=== PATIENT | female | born 1945 | race Caucasian/White ===

== ENCOUNTER 2019-12-26 13:27 | Inpatient (IN) ==
[2019-12-26 16:44] LABS: ABS Eosinophils 0.1 10^3/ul (0-0.6); ABS Lymphocytes 0.9 10^3/ul (1.0-4.8); ABS Monocytes 0.7 10^3/ul (0-0.8); ABS Neutrophils 4.8 10^3/ul (1.5-7.7); Eosinophil % 1.5 %; Hematocrit 54 % (35-47); Hemoglobin 16.9 g/dL (12.0-16.0); Lymphocyte % 13.2 %; Mean Corpuscular HGB Conc 31 g/dL (31-36); Mean Corpuscular Hemoglobin 28 pg (27-31); Mean Corpuscular Volume 89 fL (80-97); Mean Platelet Volume 7.4 fL (7.4-10.4); Nucleated Red Blood Cells % 0.1; Platelet Count 185 10^3/uL (150-450); Red Blood Count 6.08 10^6 /uL (3.70-4.87); Red Cell Distribution Width 18 % (10-15); White Blood Count 6.5 10^3/uL (3.5-10.8)
[2019-12-26 16:46] LABS: Troponin I 0.01 ng/mL (<0.03)
[2019-12-26 17:02] LABS: Activated Partial Thrombo Time 31.3 seconds (26.0-38.0); INR 1.07 (0.82-1.09)
[2019-12-26 17:15] LABS: ALT 15 U/L (7-52); Albumin 3.8 g/dL (3.2-5.2); Alkaline Phosphatase 50 U/L (34-104); Anion Gap 5 mmol/L (2-11); BUN/Creatinine Ratio 16.1 (8-20); Blood Urea Nitrogen 10 mg/dL (6-24); CO2 Carbon Dioxide 31 mmol/L (22-32); Calcium 8.9 mg/dL (8.6-10.3); Chloride 95 mmol/L (101-111); EGFR African American 113.5 (>60); EGFR Non-African American 93.8 (>60); Globulin 3.8 g/dL (2-4); Glucose 90 mg/dL (70-100); Sodium 131 mmol/L (135-145); Total Protein 7.6 g/dL (6.4-8.9)
[2019-12-26] MEDS ORDERED: Iohexol 350 (CONTRAST) 500 ML MDV IV ONE (17:24)
[2019-12-26] MEDS ORDERED: Furosemide 40 mg/4 ml IV VIAL IV ONE (18:15)
[2019-12-26 18:21] LABS: Potassium Redraw 4.4 mmol/L (3.5-5.0)
[2019-12-26] MEDS ORDERED: TRAMADOL 50 MG PO SCH (20:00)
[2019-12-27] MEDS: Enoxaparin 40 MG/0.4 ML SYR SUBCUT SCH ×2 (00:12→21:28)
[2019-12-27] MEDS ORDERED: Iohexol 350 (CONTRAST) 500 ML MDV IV ONE (03:24)
[2019-12-27 06:06] LABS: ABS Eosinophils 0.1 10^3/ul (0-0.6); ABS Lymphocytes 0.7 10^3/ul (1.0-4.8); ABS Monocytes 0.8 10^3/ul (0-0.8); ABS Neutrophils 5.2 10^3/ul (1.5-7.7); Eosinophil % 1.3 %; Hematocrit 49 % (35-47); Hemoglobin 15.4 g/dL (12.0-16.0); Lymphocyte % 10.5 %; Mean Corpuscular HGB Conc 32 g/dL (31-36); Mean Corpuscular Hemoglobin 28 pg (27-31); Mean Corpuscular Volume 88 fL (80-97); Platelet Count 188 10^3/uL (150-450); Red Blood Count 5.57 10^6 /uL (3.70-4.87); Red Cell Distribution Width 18 % (10-15); White Blood Count 6.9 10^3/uL (3.5-10.8)
[2019-12-27 06:25] LABS: BUN/Creatinine Ratio 15.3 (8-20); Calcium 8.7 mg/dL (8.6-10.3); EGFR African American 120.2 (>60); EGFR Non-African American 99.4 (>60); HDL Cholesterol 47.7 mg/dL
[2019-12-27 06:26] LABS: Troponin I 0.01 ng/mL (<0.03)
[2019-12-27] MEDS ORDERED: Furosemide 40 mg/4 ml IV VIAL IV SLOW PU SCH (08:00)
[2019-12-27] MEDS: Cholecalciferol (VIT D3) 1,000 unit TAB PO SCH (08:25)
[2019-12-27] MEDS: Ciprofloxacin 0.3% OPTH.SOL BTL BOTH EYES SCH ×2 (08:26→21:28)
[2019-12-27] MEDS: Miconazole TOPICAL CREAM 2% 30 GM TOPICAL SCH (08:26)
[2019-12-27] MEDS ORDERED: Cholecalciferol (VIT D3) 1,000 unit TAB PO SCH (09:00)
[2019-12-27 14:45] LABS: INR 1.06 (0.82-1.09)
[2019-12-27 14:56] LABS: Calcium 8.9 mg/dL (8.6-10.3); Potassium 4.3 mmol/L (3.5-5.0); Total Bilirubin 0.6 mg/dL (0.2-1.0)
[2019-12-27] MEDS ORDERED: Furosemide 40 mg/4 ml IV VIAL IV STA (15:00)
[2019-12-27 15:02] LABS: Albumin/Globulin Ratio 1.1 (1-3); BUN/Creatinine Ratio 12.7 (8-20); EGFR African American 130.4 (>60); EGFR Non-African American 107.8 (>60); Globulin 2.8 g/dL (2-4); Total Protein 5.8 g/dL (6.4-8.9)
[2019-12-28 01:04] LABS: Magnesium 1.6 mg/dL (1.9-2.7)
[2019-12-28] MEDS ORDERED: Magnesium Sulfate 2 gm BAG 2 GM/50 ML BAG IVPB ONE (01:44)
[2019-12-28] MEDS ORDERED: Iohexol 350 (CONTRAST) 500 ML MDV IV ONE (05:13)
[2019-12-28] MEDS: Cholecalciferol (VIT D3) 1,000 unit TAB PO SCH (09:06)
[2019-12-28] MEDS: Furosemide 40 mg/4 ml IV VIAL IV SCH (09:07)
[2019-12-28] MEDS: Ciprofloxacin 0.3% OPTH.SOL BTL BOTH EYES SCH ×2 (09:11→20:59)
[2019-12-28] MEDS ORDERED: Perflutren Lipid Microsphere 3 ML VIAL ONE (09:25)
[2019-12-28] MEDS ORDERED: Metoprolol Tartrate 5 mg VIAL 5 ml VIAL (1 mg/ml) IV PRN (09:42)
[2019-12-28] MEDS ORDERED: Diltiazem IV push/loading dose 5 MG/ML 5 ML vial (25 mg) IV SLOW PU ONE (09:54)
[2019-12-28] MEDS: Miconazole TOPICAL CREAM 2% 30 GM TOPICAL SCH (10:06)
[2019-12-28 12:09] LABS: Calcium 8.4 mg/dL (8.6-10.3); Magnesium 1.7 mg/dL (1.9-2.7); Potassium 3.8 mmol/L (3.5-5.0)
[2019-12-28 12:15] LABS: BUN/Creatinine Ratio 11.1 (8-20); EGFR African American 133.2 (>60); EGFR Non-African American 110.1 (>60)
[2019-12-28] MEDS: Metoprolol Tartrate 5 mg VIAL 5 ml VIAL (1 mg/ml) IV PRN (12:28)
[2019-12-28] MEDS ORDERED: Magnesium Sulfate IV 3 GM in NS 0.9% 100 ml BAG 100 ML IVPB ONE (13:31)
[2019-12-28] MEDS ORDERED: Vancomycin 1,000 MG in NS 0.9% 250 ml 250 ML IV ONE (13:33)
[2019-12-28] MEDS ORDERED: Piperacillin/Tazobac ADVAN 3.375 GM in NS 0.9% 100 ml BAG 100 ML IV ONE (13:39)
[2019-12-28] MEDS ORDERED: Vancomycin per Pharmacy 1 EA NOTE FOLLOW UP SCH (14:00)
[2019-12-28] MEDS ORDERED: Zosyn per Pharmacy NOTE FOLLOW UP PRN (14:05)
[2019-12-28 14:26] LABS: ABS Eosinophils 0.1 10^3/ul (0-0.6); ABS Lymphocytes 0.7 10^3/ul (1.0-4.8); ABS Monocytes 0.9 10^3/ul (0-0.8); ABS Neutrophils 4.6 10^3/ul (1.5-7.7); Eosinophil % 0.9 %; Hematocrit 48 % (35-47); Hemoglobin 14.7 g/dL (12.0-16.0); Lymphocyte % 10.7 %; Mean Corpuscular HGB Conc 31 g/dL (31-36); Mean Corpuscular Hemoglobin 27 pg (27-31); Mean Corpuscular Volume 88 fL (80-97); Mean Platelet Volume 6.9 fL (7.4-10.4); Nucleated Red Blood Cells % 0.2; Platelet Count 177 10^3/uL (150-450); Red Blood Count 5.41 10^6 /uL (3.70-4.87); Red Cell Distribution Width 18 % (10-15); White Blood Count 6.2 10^3/uL (3.5-10.8)
[2019-12-28] MEDS ORDERED: Vancomycin 2000 MG X 1 dose, then per Pharmacy PROTOCOL IVPB ONE (14:30)
[2019-12-28] MEDS ORDERED: Furosemide 40 mg/4 ml IV VIAL IV SLOW PU ONE (16:00)
[2019-12-28 17:30] LABS: Body Fluid Source Pleural Fluid
[2019-12-28] MEDS: ZOSYN 3.375 GM Q8H per EXTENDED INFUSION IV SCH (17:49)
[2019-12-28 18:10] LABS: Body Fluid Mono 4 %; Body Fluid Other Cells 5
[2019-12-28] MEDS: Enoxaparin 40 MG/0.4 ML SYR SUBCUT SCH (20:59)
[2019-12-28] MEDS: Vancomycin 1,250 MG in NS 0.9% 250 ml 250 ML IV SCH (22:38)
[2019-12-29] MEDS: ZOSYN 3.375 GM Q8H per EXTENDED INFUSION IV SCH ×3 (03:36→17:56)
[2019-12-29] MEDS: Vancomycin 1,250 MG in NS 0.9% 250 ml 250 ML IV SCH (05:09)
[2019-12-29 07:06] LABS: CO2 Carbon Dioxide 35 mmol/L (22-32); Chloride 95 mmol/L (101-111); Sodium 137 mmol/L (135-145)
[2019-12-29 07:07] LABS: ABS Eosinophils 0.1 10^3/ul (0-0.6); ABS Lymphocytes 1.2 10^3/ul (1.0-4.8); ABS Monocytes 0.9 10^3/ul (0-0.8); ABS Neutrophils 5.9 10^3/ul (1.5-7.7); Eosinophil % 1.2 %; Hematocrit 48 % (35-47); Hemoglobin 14.8 g/dL (12.0-16.0); Lymphocyte % 14.3 %; Mean Corpuscular HGB Conc 31 g/dL (31-36); Mean Corpuscular Hemoglobin 28 pg (27-31); Mean Corpuscular Volume 89 fL (80-97); Red Blood Count 5.36 10^6 /uL (3.70-4.87); Red Cell Distribution Width 18 % (10-15); White Blood Count 8.1 10^3/uL (3.5-10.8)
[2019-12-29 07:11] LABS: Anion Gap 7 mmol/L (2-11); Blood Urea Nitrogen 9 mg/dL (6-24); EGFR African American 117.9 (>60); EGFR Non-African American 97.5 (>60); Glucose 85 mg/dL (70-100)
[2019-12-29] MEDS: Cholecalciferol (VIT D3) 1,000 unit TAB PO SCH (08:21)
[2019-12-29] MEDS: Miconazole TOPICAL CREAM 2% 30 GM TOPICAL SCH (08:21)
[2019-12-29] MEDS: Furosemide 40 mg/4 ml IV VIAL IV SCH (08:21)
[2019-12-29] MEDS: Ciprofloxacin 0.3% OPTH.SOL BTL BOTH EYES SCH ×2 (08:22→20:27)
[2019-12-29 09:00] LABS: Mean Platelet Volume 7.4 fL (7.4-10.4); Platelet Count 123 10^3/uL (150-450)
[2019-12-29 10:18] LABS: Total Protein 5.6 g/dL (6.4-8.9)
[2019-12-29] MEDS ORDERED: Vancomycin Trough Check NOTE FOLLOW UP ONE (14:00)
[2019-12-29] MEDS ORDERED: Enoxaparin 40 MG/0.4 ML SYR SUBCUT SCH (16:00)
[2019-12-29] MEDS ORDERED: Furosemide 40 mg/4 ml IV VIAL IV ONE (18:00)
[2019-12-30] MEDS: ZOSYN 3.375 GM Q8H per EXTENDED INFUSION IV SCH ×3 (03:27→18:29)
[2019-12-30 06:42] LABS: ABS Eosinophils 0.1 10^3/ul (0-0.6); ABS Lymphocytes 0.6 10^3/ul (1.0-4.8); ABS Monocytes 0.7 10^3/ul (0-0.8); ABS Neutrophils 4.9 10^3/ul (1.5-7.7); Eosinophil % 1.7 %; Hematocrit 44 % (35-47); Lymphocyte % 10.1 %; Mean Corpuscular HGB Conc 32 g/dL (31-36); Mean Corpuscular Hemoglobin 28 pg (27-31); Mean Corpuscular Volume 87 fL (80-97); Mean Platelet Volume 7.1 fL (7.4-10.4); Platelet Count 161 10^3/uL (150-450); Red Blood Count 5.05 10^6 /uL (3.70-4.87); Red Cell Distribution Width 18 % (10-15); White Blood Count 6.3 10^3/uL (3.5-10.8)
[2019-12-30 06:57] LABS: Albumin 2.7 g/dL (3.2-5.2); BUN/Creatinine Ratio 18.8 (8-20); Calcium 8.3 mg/dL (8.6-10.3); EGFR African American 100.4 (>60); EGFR Non-African American 82.9 (>60); Globulin 2.8 g/dL (2-4); Indirect Bilirubin 0.9 mg/dL (0.3-1.0); Magnesium 1.7 mg/dL (1.9-2.7); Potassium 3.3 mmol/L (3.5-5.0); Total Bilirubin 1.2 mg/dL (0.2-1.0); Total Protein 5.5 g/dL (6.4-8.9)
[2019-12-30 06:59] LABS: Potassium Redraw 3.3 mmol/L (3.5-5.0)
[2019-12-30] MEDS ORDERED: Potassium Chlor 20 meq TAB.ER PO ONE (07:33)
[2019-12-30] MEDS: Cholecalciferol (VIT D3) 1,000 unit TAB PO SCH (08:36)
[2019-12-30] MEDS: Furosemide 40 mg/4 ml IV VIAL IV SCH (08:37)
[2019-12-30] MEDS ORDERED: Magnesium Sulfate 2 gm BAG 2 GM/50 ML BAG IVPB ONE (08:40)
[2019-12-30] MEDS: Miconazole TOPICAL CREAM 2% 30 GM TOPICAL SCH (09:48)
[2019-12-30 14:19] LABS: Lactate Dehydrogenase, BF 72 U/L
[2019-12-30 15:07] LABS: Fluid Type, Glucose PLEURAL; Glucose, BF 69 mg/dL
[2019-12-30 15:09] LABS: Fluid Type, Protein, Total PLEURAL
[2019-12-31] MEDS: ZOSYN 3.375 GM Q8H per EXTENDED INFUSION IV SCH ×3 (03:42→17:41)
[2019-12-31 06:00] LABS: Hematocrit 44 % (35-47); Hemoglobin 13.9 g/dL (12.0-16.0); Mean Corpuscular HGB Conc 32 g/dL (31-36); Mean Corpuscular Hemoglobin 28 pg (27-31); Mean Corpuscular Volume 87 fL (80-97); Mean Platelet Volume 7.5 fL (7.4-10.4); Platelet Count 164 10^3/uL (150-450); Red Blood Count 5.02 10^6 /uL (3.70-4.87); Red Cell Distribution Width 18 % (10-15); White Blood Count 6.5 10^3/uL (3.5-10.8)
[2019-12-31 06:21] LABS: Calcium 8.3 mg/dL (8.6-10.3); Magnesium 1.9 mg/dL (1.9-2.7); Potassium 3.8 mmol/L (3.5-5.0)
[2019-12-31 06:27] LABS: BUN/Creatinine Ratio 29.9 (8-20); EGFR African American 103.8 (>60); EGFR Non-African American 85.8 (>60)
[2019-12-31] MEDS: Cholecalciferol (VIT D3) 1,000 unit TAB PO SCH (07:28)
[2019-12-31] MEDS: Furosemide 40 mg/4 ml IV VIAL IV SCH (07:29)
[2019-12-31] MEDS: Metoprolol Tartrate 5 mg VIAL 5 ml VIAL (1 mg/ml) IV PRN (07:29)
[2019-12-31] MEDS: Miconazole TOPICAL CREAM 2% 30 GM TOPICAL SCH (07:55)
[2019-12-31 10:21] LABS: TSH Ultra Thyroid Stim Horm 1.95 mcIU/mL (0.34-5.60)
[2019-12-31 10:22] LABS: Free T3 2.5 pg/mL (2.5-3.9)
[2019-12-31 10:23] LABS: Free T4 0.8 ng/dL (0.61-1.12)
[2019-12-31 10:27] LABS: ABS Eosinophils 0.1 10^3/ul (0-0.6); ABS Lymphocytes 0.6 10^3/ul (1.0-4.8); ABS Monocytes 0.6 10^3/ul (0-0.8); ABS Neutrophils 5.1 10^3/ul (1.5-7.7); Eosinophil % 1.5 %; Hematocrit 48 % (35-47); Lymphocyte % 9.1 %; Mean Corpuscular HGB Conc 32 g/dL (31-36); Mean Corpuscular Hemoglobin 28 pg (27-31); Mean Corpuscular Volume 87 fL (80-97); Mean Platelet Volume 7.2 fL (7.4-10.4); Nucleated Red Blood Cells % 0.1; Platelet Count 195 10^3/uL (150-450); Red Blood Count 5.43 10^6 /uL (3.70-4.87); Red Cell Distribution Width 18 % (10-15); White Blood Count 6.3 10^3/uL (3.5-10.8)
[2019-12-31 10:53] LABS: EGFR African American 82.2 (>60)
[2019-12-31] MEDS ORDERED: Heparin 5000 UNITS/ML 1 mL VIAL IV SCH ×2 (11:00→20:00)
[2019-12-31 17:04] LABS: Hematocrit 43 % (35-47); Mean Corpuscular HGB Conc 32 g/dL (31-36); Mean Corpuscular Hemoglobin 28 pg (27-31); Mean Corpuscular Volume 86 fL (80-97); Mean Platelet Volume 7.8 fL (7.4-10.4); Platelet Count 210 10^3/uL (150-450); Red Blood Count 5.03 10^6 /uL (3.70-4.87); Red Cell Distribution Width 18 % (10-15)
[2019-12-31] MEDS ORDERED: PEG 3000 GI LAVAGE 1 GALLON PO ONE (17:04)
[2019-12-31] MEDS ORDERED: NS 0.9% 1000 ml BAG 1,000 ML IV ONE (19:16)
[2019-12-31] MEDS ORDERED: NS 0.9% 1000 ml BAG 1,000 ML IV SCH (19:30)
[2019-12-31] MEDS ORDERED: Heparin DRIP 25,000 UNITS BAG 25,000 UNITS/500 ML BAG IV SCH (20:00)
[2019-12-31 20:14] LABS: ABS Basophils 0.1 10^3/ul (0-0.2); ABS Eosinophils 0.1 10^3/ul (0-0.6); ABS Lymphocytes 1.2 10^3/ul (1.0-4.8); ABS Monocytes 1.1 10^3/ul (0-0.8); Eosinophil % 1.2 %; Hematocrit 37 % (35-47); Hemoglobin 11.5 g/dL (12.0-16.0); Mean Corpuscular HGB Conc 31 g/dL (31-36); Mean Corpuscular Hemoglobin 27 pg (27-31); Mean Corpuscular Volume 87 fL (80-97); Mean Platelet Volume 7.6 fL (7.4-10.4); Nucleated Red Blood Cells % 0.1; Platelet Count 177 10^3/uL (150-450); Red Blood Count 4.22 10^6 /uL (3.70-4.87); Red Cell Distribution Width 18 % (10-15); White Blood Count 9.5 10^3/uL (3.5-10.8)
[2019-12-31 20:28] LABS: Albumin 2.4 g/dL (3.2-5.2); BUN/Creatinine Ratio 40.5 (8-20); Calcium 7.9 mg/dL (8.6-10.3); EGFR African American 85.8 (>60); EGFR Non-African American 70.9 (>60); Globulin 2.3 g/dL (2-4); Magnesium 1.5 mg/dL (1.9-2.7); Total Protein 4.7 g/dL (6.4-8.9)
[2019-12-31] MEDS ORDERED: Magnesium Sulfate 2 gm BAG 2 GM/50 ML BAG IVPB ONE (21:47)
[2019-12-31] MEDS ORDERED: Prothrombin Complex Conc. DOSE = Units Factor IX (nine) IV SLOW PU ONE (22:00)
[2019-12-31] MEDS ORDERED: Pantoprazole VIAL 40 MG VIAL IV ONE (23:31)
[2019-12-31] MEDS ORDERED: CALCIUM GLUCONATE 1GM/50ML NS 1 GM/50 ML BAG IV ONE (23:36)
[2020-01-01] MEDS: Nystatin TOP POWDER 15 GM BTL TOPICAL SCH ×4 (00:17→22:27)
[2020-01-01] MEDS: Pantoprazole 80 mg in NS BAG 80 MG/250 ML BAG IV SCH ×3 (00:17→20:53)
[2020-01-01 02:16] LABS: Hematocrit 36 % (35-47); Hemoglobin 11.5 g/dL (12.0-16.0)
[2020-01-01] MEDS: ZOSYN 3.375 GM Q8H per EXTENDED INFUSION IV SCH (02:57)
[2020-01-01 05:51] LABS: ABS Basophils 0.1 10^3/ul (0-0.2); ABS Eosinophils 0.1 10^3/ul (0-0.6); ABS Lymphocytes 1.3 10^3/ul (1.0-4.8); ABS Monocytes 0.8 10^3/ul (0-0.8); ABS Neutrophils 5.4 10^3/ul (1.5-7.7); Eosinophil % 1.6 %; Hematocrit 34 % (35-47); Hemoglobin 11.5 g/dL (12.0-16.0); Lymphocyte % 16.5 %; Mean Corpuscular HGB Conc 33 g/dL (31-36); Mean Corpuscular Hemoglobin 29 pg (27-31); Mean Corpuscular Volume 87 fL (80-97); Mean Platelet Volume 7.5 fL (7.4-10.4); Platelet Count 154 10^3/uL (150-450); Red Blood Count 3.97 10^6 /uL (3.70-4.87); Red Cell Distribution Width 17 % (10-15); White Blood Count 7.7 10^3/uL (3.5-10.8)
[2020-01-01 06:14] LABS: BUN/Creatinine Ratio 48.4 (8-20); EGFR African American 113.5 (>60); EGFR Non-African American 93.8 (>60); Potassium 4.1 mmol/L (3.5-5.0)
[2020-01-01] MEDS: cefTRIAXone 1 gm/50 mL NS BAG 1 GM/50 ML BAG IVPB SCH (08:20)
[2020-01-01] MEDS: Miconazole TOPICAL CREAM 2% 30 GM TOPICAL SCH (09:41)
[2020-01-01] MEDS: Cholecalciferol (VIT D3) 1,000 unit TAB PO SCH (10:14)
[2020-01-01 10:16] LABS: Hematocrit 37 % (35-47); Hemoglobin 11.8 g/dL (12.0-16.0); Mean Corpuscular HGB Conc 32 g/dL (31-36); Mean Corpuscular Hemoglobin 28 pg (27-31); Mean Corpuscular Volume 86 fL (80-97); Mean Platelet Volume 7.4 fL (7.4-10.4); Platelet Count 163 10^3/uL (150-450); Red Blood Count 4.24 10^6 /uL (3.70-4.87); Red Cell Distribution Width 17 % (10-15)
[2020-01-01 10:35] LABS: BUN/Creatinine Ratio 39.1 (8-20); Calcium 8.3 mg/dL (8.6-10.3); EGFR African American 100.4 (>60); EGFR Non-African American 82.9 (>60); Potassium 3.9 mmol/L (3.5-5.0)
[2020-01-01] MEDS ORDERED: Flumazenil 0.5 mg/5 ml 0.1 MG/ML 5 ml VIAL ONE (11:53)
[2020-01-01] MEDS ORDERED: fentaNYL 100 mcg/2 ml 50 MCG/ML VIAL ONE (11:53)
[2020-01-01] MEDS ORDERED: Phenylephrine IV 10 MG/ML 1 ml VIAL ONE (11:54)
[2020-01-01] MEDS ORDERED: Midazolam 5 mg/5 ml VIAL 1 mg/ml 5 ml VIAL (5 mg) ONE (11:54)
[2020-01-01] MEDS ORDERED: Naloxone 4 mg VIAL 0.4 MG/ML 10 ml VIAL (4 mg) ONE (11:54)
[2020-01-01] MEDS ORDERED: Digoxin IV 0.5 MG/2 ML AMP (0.25 MG/ML) ONE (11:54)
[2020-01-01 18:46] LABS: Hematocrit 34 % (35-47); Hemoglobin 11.2 g/dL (12.0-16.0); Mean Corpuscular HGB Conc 33 g/dL (31-36); Mean Corpuscular Hemoglobin 29 pg (27-31); Mean Corpuscular Volume 87 fL (80-97); Mean Platelet Volume 7.7 fL (7.4-10.4); Platelet Count 147 10^3/uL (150-450); Red Blood Count 3.91 10^6 /uL (3.70-4.87); Red Cell Distribution Width 17 % (10-15); White Blood Count 8.2 10^3/uL (3.5-10.8)
[2020-01-02 06:07] LABS: ABS Basophils 0.1 10^3/ul (0-0.2); ABS Eosinophils 0.2 10^3/ul (0-0.6); ABS Monocytes 0.7 10^3/ul (0-0.8); ABS Neutrophils 5.6 10^3/ul (1.5-7.7); Eosinophil % 2.4 %; Hematocrit 33 % (35-47); Hemoglobin 10.6 g/dL (12.0-16.0); Lymphocyte % 13.4 %; Mean Corpuscular HGB Conc 32 g/dL (31-36); Mean Corpuscular Hemoglobin 28 pg (27-31); Mean Corpuscular Volume 88 fL (80-97); Mean Platelet Volume 7.8 fL (7.4-10.4); Platelet Count 138 10^3/uL (150-450); Red Blood Count 3.72 10^6 /uL (3.70-4.87); Red Cell Distribution Width 18 % (10-15); White Blood Count 7.5 10^3/uL (3.5-10.8)
[2020-01-02 06:22] LABS: Albumin 2.4 g/dL (3.2-5.2); Calcium 8.2 mg/dL (8.6-10.3); Potassium 3.8 mmol/L (3.5-5.0); Total Bilirubin 1.4 mg/dL (0.2-1.0)
[2020-01-02 06:28] LABS: Albumin/Globulin Ratio 1.2 (1-3); BUN/Creatinine Ratio 33.3 (8-20); EGFR African American 125.1 (>60); EGFR Non-African American 103.4 (>60); Total Protein 4.4 g/dL (6.4-8.9)
[2020-01-02] MEDS ORDERED: Digoxin IV 0.5 MG/2 ML AMP (0.25 MG/ML) IV SLOW PU ONE ×2 (08:17→17:00)
[2020-01-02] MEDS: Nystatin TOP POWDER 15 GM BTL TOPICAL SCH ×3 (08:30→20:12)
[2020-01-02] MEDS: cefTRIAXone 1 gm/50 mL NS BAG 1 GM/50 ML BAG IVPB SCH (08:47)
[2020-01-02] MEDS: Miconazole TOPICAL CREAM 2% 30 GM TOPICAL SCH (08:53)
[2020-01-02] MEDS ORDERED: KCL 10 MEQ/50 ML IVPREMIX 10 MEQ/50 ML BAG IV SCH (09:00)
[2020-01-02] MEDS: Pantoprazole VIAL 40 MG VIAL IV SCH ×2 (11:33→20:12)
[2020-01-02] MEDS ORDERED: Perflutren Lipid Microsphere 3 ML VIAL ONE (11:56)
[2020-01-02] MEDS: Pantoprazole 80 mg in NS BAG 80 MG/250 ML BAG IV SCH (12:49)
[2020-01-02] MEDS: Cholecalciferol (VIT D3) 1,000 unit TAB PO SCH (12:50)
[2020-01-02 14:55] LABS: Hematocrit 33 % (35-47); Hemoglobin 10.6 g/dL (12.0-16.0); Mean Corpuscular HGB Conc 32 g/dL (31-36); Mean Corpuscular Hemoglobin 28 pg (27-31); Mean Corpuscular Volume 88 fL (80-97); Mean Platelet Volume 7.7 fL (7.4-10.4); Platelet Count 148 10^3/uL (150-450); Red Blood Count 3.73 10^6 /uL (3.70-4.87); Red Cell Distribution Width 17 % (10-15); White Blood Count 8.4 10^3/uL (3.5-10.8)
[2020-01-03 04:24] LABS: ABS Eosinophils 0.2 10^3/ul (0-0.6); ABS Lymphocytes 0.8 10^3/ul (1.0-4.8); ABS Monocytes 0.6 10^3/ul (0-0.8); ABS Neutrophils 6.1 10^3/ul (1.5-7.7); Eosinophil % 3.1 %; Hematocrit 32 % (35-47); Hemoglobin 10.1 g/dL (12.0-16.0); Lymphocyte % 10.4 %; Mean Corpuscular HGB Conc 32 g/dL (31-36); Mean Corpuscular Hemoglobin 28 pg (27-31); Mean Corpuscular Volume 88 fL (80-97); Mean Platelet Volume 7.5 fL (7.4-10.4); Platelet Count 137 10^3/uL (150-450); Red Blood Count 3.63 10^6 /uL (3.70-4.87); Red Cell Distribution Width 17 % (10-15); White Blood Count 7.8 10^3/uL (3.5-10.8)
[2020-01-03] MEDS: cefTRIAXone 1 gm/50 mL NS BAG 1 GM/50 ML BAG IVPB SCH (08:24)
[2020-01-03] MEDS: Pantoprazole VIAL 40 MG VIAL IV SCH ×2 (09:08→20:43)
[2020-01-03] MEDS: Nystatin TOP POWDER 15 GM BTL TOPICAL SCH ×3 (09:09→20:42)
[2020-01-03] MEDS: Miconazole TOPICAL CREAM 2% 30 GM TOPICAL SCH (09:09)
[2020-01-03] MEDS ORDERED: Potassium Chloride LIQUID 20 MEQ/15 ML LIQUID PO ONE (10:56)
[2020-01-03 12:59] LABS: Albumin 2.4 g/dL (3.2-5.2); Calcium 8.5 mg/dL (8.6-10.3); Magnesium 1.9 mg/dL (1.9-2.7); Total Bilirubin 0.7 mg/dL (0.2-1.0)
[2020-01-03 13:05] LABS: Albumin/Globulin Ratio 1.1 (1-3); BUN/Creatinine Ratio 27.5 (8-20); EGFR African American 142.3 (>60); EGFR Non-African American 117.6 (>60); Globulin 2.2 g/dL (2-4); Total Protein 4.6 g/dL (6.4-8.9)
[2020-01-03 13:23] LABS: % Iron Saturation 19 % (15-55); Digoxin 0.6 ng/ml (0.8-2.0); Iron 51 ug/dL (50-212); Total Iron Binding Capacity 274 mcg/dL (250-450); Transferrin 196 mg/dL (203-362); Unsaturated Iron Binding < 259 ug/dL
[2020-01-03 13:43] LABS: Ferritin 185.4 ng/mL (11-307)
[2020-01-04 06:31] LABS: ABS Eosinophils 0.2 10^3/ul (0-0.6); ABS Lymphocytes 0.8 10^3/ul (1.0-4.8); ABS Monocytes 0.4 10^3/ul (0-0.8); ABS Neutrophils 4.2 10^3/ul (1.5-7.7); Eosinophil % 3.5 %; Hematocrit 26 % (35-47); Hemoglobin 8.1 g/dL (12.0-16.0); Mean Corpuscular HGB Conc 32 g/dL (31-36); Mean Corpuscular Hemoglobin 28 pg (27-31); Mean Corpuscular Volume 89 fL (80-97); Mean Platelet Volume 8.1 fL (7.4-10.4); Nucleated Red Blood Cells % 0.1; Platelet Count 123 10^3/uL (150-450); Red Blood Count 2.89 10^6 /uL (3.70-4.87); Red Cell Distribution Width 17 % (10-15); White Blood Count 5.7 10^3/uL (3.5-10.8)
[2020-01-04 06:48] LABS: BUN/Creatinine Ratio 25.5 (8-20); Calcium 8.5 mg/dL (8.6-10.3); EGFR African American 130.4 (>60); EGFR Non-African American 107.8 (>60); Magnesium 1.9 mg/dL (1.9-2.7); Potassium 4.1 mmol/L (3.5-5.0)
[2020-01-04] MEDS: cefTRIAXone 1 gm/50 mL NS BAG 1 GM/50 ML BAG IVPB SCH (09:03)
[2020-01-04] MEDS: Pantoprazole VIAL 40 MG VIAL IV SCH ×2 (09:04→21:39)
[2020-01-04] MEDS: Nystatin TOP POWDER 15 GM BTL TOPICAL SCH ×3 (10:21→21:38)
[2020-01-05 04:43] LABS: ABS Basophils 0.1 10^3/ul (0-0.2); ABS Eosinophils 0.2 10^3/ul (0-0.6); ABS Lymphocytes 1.4 10^3/ul (1.0-4.8); ABS Monocytes 0.6 10^3/ul (0-0.8); ABS Neutrophils 4.3 10^3/ul (1.5-7.7); Eosinophil % 3.5 %; Hematocrit 31 % (35-47); Hemoglobin 10.1 g/dL (12.0-16.0); Lymphocyte % 21.2 %; Mean Corpuscular HGB Conc 33 g/dL (31-36); Mean Corpuscular Hemoglobin 29 pg (27-31); Mean Corpuscular Volume 88 fL (80-97); Platelet Count 176 10^3/uL (150-450); Red Blood Count 3.54 10^6 /uL (3.70-4.87); Red Cell Distribution Width 17 % (10-15); White Blood Count 6.6 10^3/uL (3.5-10.8)
[2020-01-05 04:57] LABS: BUN/Creatinine Ratio 16.2 (8-20); Calcium 8.5 mg/dL (8.6-10.3); EGFR African American 102.1 (>60); EGFR Non-African American 84.4 (>60); Magnesium 1.9 mg/dL (1.9-2.7)
[2020-01-05] MEDS: Pantoprazole VIAL 40 MG VIAL IV SCH ×2 (09:04→21:32)
[2020-01-05] MEDS: Nystatin TOP POWDER 15 GM BTL TOPICAL SCH ×3 (09:05→21:32)
[2020-01-06 07:55] LABS: ABS Eosinophils 0.2 10^3/ul (0-0.6); ABS Monocytes 0.5 10^3/ul (0-0.8); ABS Neutrophils 3.8 10^3/ul (1.5-7.7); Eosinophil % 3.2 %; Hematocrit 32 % (35-47); Hemoglobin 10.4 g/dL (12.0-16.0); Lymphocyte % 17.4 %; Mean Corpuscular HGB Conc 33 g/dL (31-36); Mean Corpuscular Hemoglobin 29 pg (27-31); Mean Corpuscular Volume 88 fL (80-97); Nucleated Red Blood Cells % 0.1; Platelet Count 204 10^3/uL (150-450); Red Blood Count 3.66 10^6 /uL (3.70-4.87); Red Cell Distribution Width 18 % (10-15); White Blood Count 5.5 10^3/uL (3.5-10.8)
[2020-01-06] MEDS: Nystatin TOP POWDER 15 GM BTL TOPICAL SCH ×3 (07:59→20:09)
[2020-01-06] MEDS: Pantoprazole VIAL 40 MG VIAL IV SCH ×2 (07:59→20:09)
[2020-01-07] MEDS: Pantoprazole VIAL 40 MG VIAL IV SCH (08:08)
[2020-01-07] MEDS: Nystatin TOP POWDER 15 GM BTL TOPICAL SCH ×2 (08:08→13:26)
[2020-01-07] MEDS ORDERED: Potassium Chlor 10 meq TAB PO SCH (09:00)
[2020-01-07 12:22] VITALS: BP 122/63
== END 2020-01-07 15:30 | disposition home health service (06) | DRG 189 ==
LOC: ED 13:27 → MEDTELE 20:03 → ICU 12-31 18:17 → MEDTELE 01-03 14:34
PROVIDERS: ADMIT Hospitalist; ATTEND Internal Medicine

== ENCOUNTER 2022-11-21 16:20 | Inpatient (IN) ==
[2022-11-21 22:05] LABS: ABS Basophils 0.1 10^3/uL (0.0-0.1); ABS Eosinophils 0.1 10^3/uL (0.0-0.5); ABS Lymphocytes 1.2 10^3/uL (1.0-4.8); ABS Monocytes 0.6 10^3/uL (0.0-0.9); ABS Neutrophils 7.1 10^3/uL (1.5-7.6); ABS Nucleated RBC 0.01 10^3/ul; Eosinophil % 0.8 %; Hematocrit 42.9 % (35-45); Hemoglobin 13.7 g/dL (11.5-14.3); Lymphocyte % 12.9 %; Mean Corpuscular Hemoglobin 27.1 pg (27-33); Mean Corpuscular Hgb Conc 31.9 g/dL (31-36); Mean Platelet Volume 7.1 fL (7.5-11.2); Nucleated Red Blood Cells % 0.1 /100 WBC (0.0-0.4); Platelet Count 228 10^3/uL (150-450); Red Blood Count 5.05 10^6/uL (3.63-4.92); Red Cell Distribution Width 15.1 % (12-17); White Blood Count 8.9 10^3/uL (3.8-11.8)
[2022-11-21 22:24] LABS: Albumin/Globulin Ratio 1.1 (1-3); C Reactive Protein 25.13 mg/L (<8.01); Calcium 10.1 mg/dL (8.6-10.3); Creatinine, Serum 0.69 mg/dL (0.51-0.95); Globulin 3.7 g/dL (2-4); Potassium 4.1 mmol/L (3.5-5.0); Total Bilirubin 0.7 mg/dL (0.2-1.0); Total Protein 7.7 g/dL (6.4-8.9); eGFR CKD-EPI 88.8 (>60)
[2022-11-21 23:43] LABS: High Sensitivity Troponin 1 Hr 4 pg/mL (<15)
[2022-11-22] MEDS ORDERED: Iohexol 350 (CONTRAST) 500 ML MDV IV ONE (00:45)
[2022-11-22] MEDS ORDERED: Furosemide 40 mg/4 ml IV VIAL IV SLOW PU ONE ×2 (02:00→04:58)
[2022-11-22 06:54] LABS: INR 1.16 (0.88-1.18)
[2022-11-22] MEDS: Potassium Chlor 10 meq TAB PO SCH (07:51)
[2022-11-22 10:56] LABS: Body Fluid WBC 380 /mcL
[2022-11-22 11:18] LABS: Body Fluid Appearance Clear; Body Fluid Color Yellow; Body Fluid Mono 23 %; Body Fluid Source Pleural Fluid; Body Fluid Total Cells Counted 200
[2022-11-22] MEDS: Enoxaparin 40 MG/0.4 ML SYR SUBCUT SCH (13:53)
[2022-11-22] MEDS: Nystatin TOP POWDER 15 GM BTL TOPICAL SCH ×2 (13:54→21:49)
[2022-11-23 05:44] LABS: Hematocrit 36.7 % (35-45); Hemoglobin 11.7 g/dL (11.5-14.3); Mean Corpuscular Hemoglobin 26.5 pg (27-33); Mean Corpuscular Hgb Conc 31.9 g/dL (31-36); Mean Corpuscular Volume 83.1 fL (80-97); Mean Platelet Volume 7.4 fL (7.5-11.2); Platelet Count 192 10^3/uL (150-450); Red Blood Count 4.42 10^6/uL (3.63-4.92); White Blood Count 10.5 10^3/uL (3.8-11.8)
[2022-11-23 06:01] LABS: Calcium 8.9 mg/dL (8.6-10.3); Creatinine, Serum 0.67 mg/dL (0.51-0.95); Potassium 3.8 mmol/L (3.5-5.0); eGFR CKD-EPI 89.4 (>60)
[2022-11-23] MEDS: Potassium Chlor 10 meq TAB PO SCH (08:48)
[2022-11-23] MEDS: Cholecalciferol (VIT D3) 1,000 unit TAB PO SCH (08:49)
[2022-11-23] MEDS: Nystatin TOP POWDER 15 GM BTL TOPICAL SCH ×3 (08:50→21:04)
[2022-11-23] MEDS ORDERED: Furosemide 40 mg/4 ml IV VIAL IV ONE (08:58)
[2022-11-23 12:31] LABS: Lactate Dehydrogenase, BF 33 U/L
[2022-11-23] MEDS: Enoxaparin 40 MG/0.4 ML SYR SUBCUT SCH (13:35)
[2022-11-23 14:09] LABS: Fluid Type, Protein, Total PLEURAL FLUID; Total Protein, BF 2.9 g/dL
[2022-11-24 06:15] LABS: Hematocrit 35.5 % (35-45); Hemoglobin 11.4 g/dL (11.5-14.3); Mean Corpuscular Hgb Conc 32.1 g/dL (31-36); Mean Platelet Volume 7.1 fL (7.5-11.2); Platelet Count 189 10^3/uL (150-450); Red Blood Count 4.23 10^6/uL (3.63-4.92); Red Cell Distribution Width 14.9 % (12-17)
[2022-11-24 06:31] LABS: Calcium 8.5 mg/dL (8.6-10.3); Creatinine, Serum 0.65 mg/dL (0.51-0.95); Magnesium 1.6 mg/dL (1.9-2.7); Potassium 3.6 mmol/L (3.5-5.0); eGFR CKD-EPI 90.1 (>60)
[2022-11-24] MEDS ORDERED: Magnesium Sulfate 2 gm BAG 2 GM/50 ML BAG IVPB ONE (07:08)
[2022-11-24] MEDS ORDERED: Furosemide 40 mg/4 ml IV VIAL IV ONE (07:10)
[2022-11-24] MEDS: Potassium Chlor 10 meq TAB PO SCH (08:53)
[2022-11-24] MEDS: Cholecalciferol (VIT D3) 1,000 unit TAB PO SCH (08:53)
[2022-11-24] MEDS: Nystatin TOP POWDER 15 GM BTL TOPICAL SCH (08:55)
[2022-11-24 13:29] VITALS: BP 119/59
== END 2022-11-24 15:00 | disposition home or self-care (01) | DRG 291 ==
LOC: EDHOLD 16:20 → ED 16:20 → SUATTDRO 11-22 05:01 → EDHOLD 11-22 10:43 → MED 11-22 10:53 → SUATTDRO 11-22 16:20
PROVIDERS: ADMIT Internal Medicine; ATTEND Internal Medicine